=== PATIENT | female | born 1980 | race African-American/Black ===

== ENCOUNTER 2017-10-17 16:47 | Emergency (ER) | payer OTHER ==
[2017-10-17 17:11] VITALS: BP 168/95; PULSE 62; TEMP 98.1; BMI 31.4
[2017-10-17 17:35] LABS: URINE APPEARANCE CLEAR; URINE BILIRUBIN NEGATIVE (NEGATIVE); URINE BLOOD NEGATIVE (NEGATIVE); URINE COLOR YELLOW; URINE GLUCOSE (UA) NEGATIVE (NEGATIVE); URINE KETONE NEGATIVE (NEGATIVE); URINE LEUK ESTERASE TRACE (NEGATIVE); URINE NITRITE NEGATIVE (NEGATIVE); URINE PROTEIN NEGATIVE (NEGATIVE); URINE UROBILINOGEN NEGATIVE mg/dL (0.2-1.0)
[2017-10-17 17:39] LABS: URINE BACTERIA FEW /hpf (NONE SEEN); URINE RBC 1 /hpf (0-3); URINE WBC 23 /hpf (3-5)
--- NOTE | 2017-10-17 17:44 | PDOC ---
History of Present Illness - General Chief Complaint: Urinary Problem Stated Complaint: POSSIBLE UTI Time Seen by Provider: 10/17/17 17:33 - History of Present Illness Initial Comments: 10/17/17 17:37 CHIEF COMPLAINT: uti symptoms HISTORY OF PRESENT ILLNESS: 37 yo F with hx of "kidney infections" presents to fast track with "urinary tract infection symptoms." Patient reports discomfort with urination that started yesterday and states she took an Azo for pain relief but "when the urine looked weird I said I have to go in." Patient reports b/l back pain since last week but denies any fever, chills, nausea, vomiting, diarrhea. Patient denies any foul smelling or unusual discharge. PAST MEDICAL HISTORY: Denies past medical history FAMILY HISTORY: Denies SOCIAL HISTORY: Denies tobacco, alcohol, illicit drug use. SURGICAL HISTORY: Denies ALLERGIES: No known drug allergies REVIEW OF SYSTEMS General/Constitutional: Denies fever or chills. Denies weakness, weight change. HEENT: Denies change in vision. Denies ear pain or discharge. Denies sore throat. Cardiovascular: Denies chest pain or shortness of breath. Respiratory: Denies cough, wheezing, or hemoptysis. Gastrointestinal: Denies nausea, vomiting, diarrhea or constipation. Denies rectal bleeding. Genitourinary: Discomfort with urination. Musculoskeletal: Denies joint or muscle swelling or pain. Denies neck or back pain. Skin: Denies rash or easy bruising. PHYSICAL EXAM General Appearance: Well-appearing, appropriately dressed. No apparent distress. HEENT: EOMI, PERRLA. No conjunctival pallor. No photophobia, scleral icterus. Respiratory/Chest: Lungs CTAB. Cardiovascular: RRR. S1, S2. Gastrointestinal/Abdominal: Normal bowel sounds. Abdomen soft, non-distended. No tenderness or rebound tenderness. No organomegaly, pulsatile mass, guarding , hernia, hepatomegaly, splenomegaly. Musculoskeletal/Extremities: No CVA tenderness b/l. Normal inspection. FROM of all extremities, normal capillary refill. Pelvis Stable. No tenderness to extremities, pedal edema, swelling, erythema or deformity. Integumentary: Appropriate color, dry, warm. 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 Fully oriented, alert. Appropriate mood/affect. Motor strength 5/5. No appreciable EOM palsy, facial droop or sensory deficit. Past History - Past Medical History Allergies/Adverse Reactions: Allergies Allergy/AdvReac Type Severity Reaction Status Date / Time lactose Allergy diarrhea Verified 10/17/17 17:07 Home Medications: Ambulatory Orders Nitrofurantoin Monohyd/M-Cryst [Macrobid -] 100 mg PO BID #14 capsule 10/17/17 COPD: No HTN: No - Immunization History Immunization Up to Date: Yes - Suicide/Smoking/Psychosocial Hx Smoking History: Current every day smoker Have you smoked in the past 12 months: Yes Number of Cigarettes Smoked Daily: 5 Information on smoking cessation initiated: No 'Breaking Loose' booklet given: 04/22/16 Hx Alcohol Use: No Drug/Substance Use Hx: No Substance Use Type: None *Physical Exam - Vital Signs Last Vital Signs Temp Pulse Resp BP Pulse Ox 98.1 F 62 18 168/95 100 10/17/17 17:08 10/17/17 17:08 10/17/17 17:08 10/17/17 17:08 10/17/17 17:08 Medical Decision Making - Medical Decision Making 10/17/17 17:44 37 yo F with hx of "kidney infections" presents to fast track with "urinary tract infection symptoms." -UA, UCx, upreg Urine WBC 23, will treat for UTI. Macrobid sent to pharm Advised patient to take medication as prescribed and follow up with primary care doctor if symptoms persist. Advised patient of signs and symptoms for return to ED. Patient verbalized understanding and agrees to plan. *DC/Admit/Observation/Transfer Diagnosis at time of Disposition: Urinary tract infection Qualifiers: Urinary tract infection type: site unspecified Hematuria presence: without hematuria Qualified Code(s): N39.0 - Urinary tract infection, site not specified - Discharge Dispostion Disposition: HOME Condition at time of disposition: Stable Admit: No - Prescriptions Prescriptions: Nitrofurantoin Monohyd/M-Cryst [Macrobid -] 100 mg PO BID #14 capsule - Referrals - Patient Instructions Printed Discharge Instructions: DI for Urinary Tract Infection (UTI) Additional Instructions: Please take medication as prescribed. Substance persist. Please follow up with your [facility]. If you develop any fever, chills, vomiting, diarrhea, or any new or worsening symptoms, please return to the ER. - Post Discharge Activity
[2017-10-17] MEDS ORDERED: NITROFURANTOIN MACROCRYSTAL 50 MG CAPSULE (FP) ONE (17:53)
[2017-10-17] MEDS ORDERED: NITROFURANTOIN MACROCRYSTAL 50 MG CAPSULE (FP) PO SCH (18:00)
[2017-10-17 20:21] LABS: URINE LEUK ESTERASE TRACE (NEGATIVE)
== END 2017-10-17 17:56 | disposition home or self-care (01) ==
LOC: JERFT 16:47
DX: N39.0 Urinary tract infection, site not specified (principal); F17.210 Nicotine dependence, cigarettes, uncomplicated
CPT/HCPCS: 81003; 81015; 84703; 87086; 87186; 99281-25

== ENCOUNTER 2017-11-20 15:22 | Emergency (ER) | payer OTHER ==
[2017-11-20 15:33] VITALS: BP 131/72; PULSE 96; TEMP 98.6; BMI 31.4
--- NOTE | 2017-11-20 16:00 | PDOC ---
History of Present Illness - General Chief Complaint: Cold Symptoms Stated Complaint: LOWER BACK PAIN, NAUSEA, Time Seen by Provider: 11/20/17 15:41 History Source: Patient Exam Limitations: No Limitations - History of Present Illness Initial Comments: 11/20/17 15:58 CHIEF COMPLAINT: [Lower back pain, fever or chills] HISTORY OF PRESENT ILLNESS:[ 37]-year-old [female],[ no significant medical history presents for evaluation of generalized lower back pain, tactile fever, cough and cold-like symptoms reports in the past her urinary tract infection that presented as back pain similar to what she was experiencing male so she is unsure if she has the flu versus a UTI . Complains of irritation to genitalia otherwise no urinary symptoms, Nonradiating pain, no neurosensory deficits, no bowel or bladder difficulty incontinence or urinary retention, no saddle anesthesia, no footdrop. No history of IVDU or history of cancer. ] REVIEW OF SYSTEMS: GENERAL: Tactile fever, denies any weakness RESPIRATORY: No cough, wheezing, or hemoptysis. CARDIAC: No chest pain or shortness of breath MUSCULOSKELETAL: Pain to generalized lower back. No point tenderness. SKIN : No erythema, no bruising, no deformity. GI/: Denies any abdominal pain, no urinary difficulty, incontinence or urinary retention. Feels irritated to perineum RECTAL: Denies any difficulty this A.m. NEUROLOGICAL: Denies any numbness or tingling. No neurosensory deficits. PHYSICAL EXAM: GENERAL: The patient is awake, alert, and fully oriented, in no acute distress. RESPIRATORY: Lungs clear bilaterally, no rhonchi wheezes or crackles CARDIAC: S1-S2 audible, no murmur rub or gallop MUSCULOSKELETAL: Pain to generalized lower back, nonradiating, no tingling or sensory deficit. Less than 2 second cap refill, +4 popliteal and pedal pulses. GI/: Abdomen soft, nontender, nondistended. No rebound tenderness. No masses palpable. MUSCULOSKELETAL: No spinal point tenderness. Normal reflexive and no deficits to sensation or strength. SKIN: Warm, Dry, normal turgor, no erythema, no edema no bruising. Past History - Past Medical History Allergies/Adverse Reactions: Allergies Allergy/AdvReac Type Severity Reaction Status Date / Time lactose Allergy diarrhea Verified 11/20/17 15:30 Home Medications: Ambulatory Orders Oseltamivir Phosphate [Tamiflu -] 75 mg PO BID #10 capsule 11/20/17 COPD: No HTN: No - Immunization History Immunization Up to Date: Yes - Suicide/Smoking/Psychosocial Hx Smoking History: Current every day smoker Have you smoked in the past 12 months: Yes Number of Cigarettes Smoked Daily: 5 Information on smoking cessation initiated: No 'Breaking Loose' booklet given: 04/22/16 Hx Alcohol Use: No Drug/Substance Use Hx: No Substance Use Type: None *Physical Exam - Vital Signs Last Vital Signs Temp Pulse Resp BP Pulse Ox 98.6 F 96 H 18 131/72 100 11/20/17 15:30 11/20/17 15:30 11/20/17 15:30 11/20/17 15:30 11/20/17 15:30 Medical Decision Making - Medical Decision Making 11/20/17 16:00 A/P: Patient with tactile fever, generalized aches and pains and lower back pain with no CVA tenderness. Will perform rapid influenza and urinalysis and urine culture. 11/20/17 18:47 Patient is influenza A positive we will discharge on Tamiflu. Laboratory Results - last 24 hr 11/20/17 11/20/17 11/20/17 16:00 16:20 16:20 ALT 22 Urine Color Yellow Urine Appearance Cloudy Urine pH 5.0 Ur Specific [place] 1.023 Urine Protein 2+ H Urine Glucose (UA) 1+ H Urine Ketones Trace H Urine Blood 3+ H Urine Nitrite Negative Urine Bilirubin Negative Urine Urobilinogen Negative Ur Leukocyte Esterase Negative Urine WBC (Auto) 4 Urine RBC (Auto) 33 Ur Epithelial Cells Moderate Urine Bacteria Rare Hyaline Casts 1 Urine Mucus Rare HIV 1&2 Antibody Screen Negative HIV P24 Antigen Negative Urine is insignificant. 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 Has consented for HIV and hepatitis screening.. Patient to follow-up with primary care doctor and [facility] as needed. *DC/Admit/Observation/Transfer Diagnosis at time of Disposition: Influenza A - Discharge Dispostion Disposition: HOME Condition at time of disposition: Stable Admit: No - Prescriptions Prescriptions: Oseltamivir Phosphate [Tamiflu -] 75 mg PO BID #10 capsule - Referrals - Patient Instructions Printed Discharge Instructions: Influenza (Alternative Therapy), Influenza Additional Instructions: Increase fluids to prevent dehydration Tylenol for headache Motrin for fever greater than 101.0 Please followup with primary care in 3 days if symptoms persist Return to emergency department any increased cough, fever, inability to drink or other concerns - Post Discharge Activity Forms/Work/School Notes: Back to Work
[2017-11-20 16:20] LABS: URINE APPEARANCE CLOUDY; URINE BILIRUBIN NEGATIVE (NEGATIVE); URINE BLOOD 3+ (NEGATIVE); URINE COLOR YELLOW; URINE GLUCOSE (UA) 1+ (NEGATIVE); URINE KETONE TRACE (NEGATIVE); URINE LEUK ESTERASE NEGATIVE (NEGATIVE); URINE NITRITE NEGATIVE (NEGATIVE); URINE UROBILINOGEN NEGATIVE mg/dL (0.2-1.0)
[2017-11-20 16:22] LABS: URINE PROTEIN 2+ (NEGATIVE)
[2017-11-20 16:45] LABS: EPI CELLS MODERATE /HPF (FEW); URINE BACTERIA RARE /hpf (NONE SEEN); URINE HYALINE CAST 1 /lpf; URINE MUCUS RARE
[2017-11-23 00:06] LABS: HBSAG SCREEN Negative (Negative); HEP A AB, IGM Negative (Negative); HEP B CORE AB, TOT Negative (Negative)
== END 2017-11-20 17:29 | disposition home or self-care (01) ==
LOC: JERFT 15:22
DX: J09.X2 Influenza due to identified novel influenza A virus with other respiratory manifestations (principal)
CPT/HCPCS: 36415; 81003; 81015; 84460; 86704; 86706; 86708; 86803; 87086; 87340; 87389; 87804; 99281-25